=== PATIENT | male | born 1960 | race Caucasian/White ===

== ENCOUNTER 2024-05-11 07:49 | Emergency (ER) | payer OTHER, BC ==
[2024-05-11] MEDS: HYDROmorphone 0.5 MG/0.5 ML Syringe IVPUSH ONE ×3 (08:57→16:19)
[2024-05-11 09:52] LABS: APPEARANCE,URINE CLEAR (CLEAR); BILIRUBIN,URINE NEGATIVE (NEGATIVE); COLOR,URINE YELLOW (YELLOW); GLUCOSE,URINE 500 mg/dL (NEGATIVE); KETONES,URINE 15 mg/dL (NEGATIVE); LEUKOCYTE ESTERASE,URINE NEGATIVE (NEGATIVE); NITRITE,URINE NEGATIVE (NEGATIVE); OCCULT BLOOD,URINE NEGATIVE (NEGATIVE); PROTEIN,URINE TRACE mg/dL (NEGATIVE); UROBILINOGEN,URINE 0.2 EU/dL (0.2-1.0)
[2024-05-11 09:59] LABS: AMORPHOUS SEDIMENT,URINE NOT SEEN; BACTERIA,URINE RARE; EPITHELIAL CELLS,URINE NOT SEEN; MUCUS,URINE NOT SEEN; RBC,URINE 0-5 (0-5); WBC,URINE 0-5 (0-5)
[2024-05-11 10:08] LABS: HEMATOCRIT 41.8 % (38.4-49.7); MEAN CORPUSCULAR HEMOGLOBIN 30.5 pg (31.6-35.5); MEAN CORPUSCULAR HGB CONC 35.9 g/dL (31.6-35.5); PLATELET COUNT,PLT 262 K/uL (130-375); RED BLOOD CELL COUNT 4.92 M/uL (4.14-5.76); WHITE BLOOD CELL COUNT,WBC 14.7 K/uL (3.2-11.0)
[2024-05-11 10:17] LABS: A/G RATIO 1.3 (1.2-2.2); ALANINE AMINOTRANSFERASE,ALT 54 U/L (12-78); ALBUMIN 4.4 g/dL (3.4-5.0); ALKALINE PHOSPHATASE 99 U/L (46-116); ANION GAP 15.4 mmol/L (5.0-14.0); ASPARTATE AMNIOTRANSFERASE,AST 47 U/L (15-37); BILIRUBIN TOTAL 1.7 mg/dL (0.2-1.0); BLOOD UREA NITROGEN,BUN 20 mg/dL (7-18); CALCIUM 9.8 mg/dL (8.5-10.1); CARBON DIOXIDE,CO2 23 mmol/L (21-32); CHLORIDE,CL 105 mmol/L (100-108); CREATININE 0.9 mg/dL (0.8-1.3); ESTIMATED GFR 97 mL/min (>60); GLUCOSE RANDOM 199 mg/dL (74-106); POTASSIUM,K 4.2 mmol/L (3.6-5.2); PROTEIN TOTAL,TP 7.9 g/dL (6.4-8.2); SODIUM,NA 143 mmol/L (140-148)
[2024-05-11 10:48] LABS: EOSINOPHILS ABSOLUTE MAN 0.88 K/uL (0.00-0.40); EOSINOPHILS PERCENT MAN 6 % (2-4); LYMPHOCYTES ABSOLUTE MAN 1.62 K/uL (0.8-3.3); LYMPHOCYTES PERCENT MAN 11 % (24-44); MONOCYTES ABSOLUTE MAN 1.03 K/uL (0.20-0.90); MONOCYTES PERCENT MAN 7 % (2-6); NEUTROPHILS ABSOLUTE MAN 11.17 K/uL (1.0-7.6); SEG NEUTROPHILS PERCENT MAN 76 % (36-66)
[2024-05-11] MEDS ORDERED: Sodium Chloride 0.9% 1,000 ML IV SCH (14:15)
[2024-05-11] MEDS: Acetaminophen 500 MG Tab PO ONE (14:30)
[2024-05-11] MEDS: Sodium Chloride 0.9% 500 ML IV ONE (14:42)
== END 2024-05-11 16:32 ==
LOC: JP.ED 07:49
DX: S22.31XA Fracture of one rib, right side, initial encounter for closed fracture (principal); S32.402A Unspecified fracture of left acetabulum, initial encounter for closed fracture; Z79.84 Long term (current) use of oral hypoglycemic drugs; Z79.899 Other long term (current) drug therapy; Z88.2 Allergy status to sulfonamides; V47.5XXA Car driver injured in collision with fixed or stationary object in traffic accident, initial encounter; Y92.410 Unspecified street and highway as the place of occurrence of the external cause
CPT/HCPCS: 36415; 70450; 70450-26; 71101-26-RT; 71101-RT; 71250; 71250-26; 72170; 72170-26; 73552-26-LT; 73552-LT; 73700-26-LT; 73700-LT; 76377; 80053; 81001; 82947; 85025; 93005; 93010; 96361; 96374; 96376; 99283; 99285-25; A9270-GY; J1171; J7040